=== PATIENT | female | born 1990 | race Caucasian/White ===

== ENCOUNTER 2017-04-09 00:40 | Emergency (ER) | payer MEDICAID, OTHER ==
[2017-04-09 00:48] VITALS: BP 139/73; PULSE 107; RESP 16; TEMP 98.4; O2SAT 100
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
== END 2017-04-09 02:03 | disposition home or self-care (01) ==
LOC: H.ER 00:40
DX: Z04.1 Encounter for examination and observation following transport accident (principal); F10.10 Alcohol abuse, uncomplicated; R11.0 Nausea
CPT/HCPCS: 96372; 99283; J2405